=== PATIENT | male | born 1990 | race Two or more races ===

== ENCOUNTER 2024-12-21 16:25 | Emergency (ER) | payer BC, SELFPAY ==
[2024-12-21 16:26] VITALS: BP 146/79; PULSE 66; RESP 18; TEMP 36.6; O2SAT 97; BMI 36.2
[2024-12-21 16:27] VITALS: PULSE 78; BMI 35.5
--- NOTE | 2024-12-21 16:53 | EDRME_ITS ---
Rapid Medical Screening Exam [facility] Arrival date/time: 12/21/24 16:25 34-year-old male with no known medical history presents to the emergency room with a chief complaint of tenderness and pain to his neck. Patient states he woke up from a nap this morning and began having shooting pain down his spine. Patient rates his pain an 8 out of 10. Patient denies any trauma I have greeted and performed a focused initial assessment of this patient. A comprehensive ED assessment and evaluation of the patient, analysis of all test results, and completion of the medical decision making process will be conducted by additional ED providers. Chief Complaint: Neck Pain/Injury Time Seen by Provider: 12/21/24 16:45 Vital signs: Vital Signs Temperature 97.8 F 12/21/24 16:26 Pulse Rate 66 12/21/24 16:26 Respiratory Rate 18 12/21/24 16:26 Blood Pressure 146/79 H 12/21/24 16:26 Pulse Oximetry (%) 97 12/21/24 16:26 Oxygen Delivery Method Room Air 12/21/24 16:26 Vital signs reviewed by provider: Yes
--- NOTE | 2024-12-21 16:53 | XR_ITS ---
Examination: Cervical spine 4 views Technique one AP lateral coned AP odontoid swimmer's lateral 4 views Exam date and time: December 21, 2024 1701 hrs. Indications: Workup of any pain today. Findings: Adequate alignment cervical vertebral bodies on the lateral view Moderate disc narrowing C5-C6 with minimal posterior osteophyte formation Intact odontoid Satisfactory alignment posterior spinous processes Impression: No cervical fracture Moderate degenerative disc disease C5-C6
[2024-12-21] MEDS: CYCLObenzaPRINE 5 MG TABLET 10 MG PO (17:40)
[2024-12-21] MEDS: KETOROLAC INJ 60 MG/2 ML VIAL 30 MG IM (17:40)
--- NOTE | 2024-12-21 19:45 | PD.EDNECK ---
ED Neck Injury Pain RME/HPI General Chief Complaint: Neck Pain/Injury Stated Complaint: NON TRAUMATIC NECK PAIN Time Seen by Provider: 12/21/24 16:45 Arrival date/time: 12/21/24 16:25 RME / HPI RME / HPI Narrative: 12/21/24 16:25 34-year-old male with no known medical history presents to the emergency room with a chief complaint of tenderness and pain to his neck. Patient states he woke up from a nap this morning and began having shooting pain down his spine. Patient rates his pain an 8 out of 10. Patient denies any trauma I have greeted and performed a focused initial assessment of this patient. A comprehensive ED assessment and evaluation of the patient, analysis of all test results, and completion of the medical decision making process will be conducted by additional ED providers. Woke up with pain in the neck. When he tried to stand and bent his neck forward shooting pain down to his right scapular area. Related Data Allergies Allergy/AdvReac Type Severity Reaction Status Date / Time No Known Allergies Allergy Verified 12/21/24 16:26 Course Orders Category Date Time Status XR cervical spine 2-3V Stat Exams 12/21/24 16:53 Completed CYCLObenzaPRINE [Flexeril] Med 12/21/24 16:53 Discontinued 10 mg PO X1 ONE Ketorolac Inj [Toradol Inj] Med 12/21/24 16:53 Discontinued 30 mg IM X1 ONE Reevaluation(s) Reevaluation #1: Reevaluated. Patient feeling better. 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 Time: 19:45 Vital Signs Vital signs: Vital Signs Temperature 97.8 F 12/21/24 16:26 Pulse Rate 66 12/21/24 16:26 Respiratory Rate 18 12/21/24 16:26 Blood Pressure 146/79 H 12/21/24 16:26 Pulse Oximetry (%) 97 12/21/24 16:26 Oxygen Delivery Method Room Air 12/21/24 16:26 Neck Pain Medications / Prescriptions Medication administrations:: Medication Administration History Discontinued Medications Cyclobenzaprine HCl (Cyclobenzaprine 5 Mg Tablet) 10 mg PO X1 ONE Stop: 12/21/24 16:54 Last Admin: 12/21/24 17:40 Dose: 10 mg Documented By: LUIS Ketorolac Tromethamine (Ketorolac Inj 60 Mg/2 Ml Vial) 30 mg IM X1 ONE Stop: 12/21/24 16:54 Last Admin: 12/21/24 17:40 Dose: 30 mg Documented By: LUIS Discharge Plan Prescriptions/Referrals Referrals: No Primary/Family,Physician [Primary Care Provider] - In 1 week Patient/Caregiver Discharge Instructions Print Language: Andorran
== END 2024-12-21 20:08 | disposition home or self-care (01) ==
PROVIDERS: Emergency Provider Emergency Medicine
DX: M54.2 Cervicalgia (principal)
CPT/HCPCS: 72040; 96372; 99283; J1885; A9270